=== PATIENT | male | born 1940 | race Caucasian/White ===

== ENCOUNTER 2018-11-10 17:23 | Emergency (ER) | payer OTHER ==
[~2018-11-10 17:23] MED LIST changes: -WARF5TAB23 PO
[2018-11-10] MEDS ORDERED: WARF5TAB23 PO (17:45)
[2018-11-10 17:53] LABS: PLATELET COUNT, AUTOMATED 191 K/uL (150-450)
--- NOTE | 2018-11-10 17:55 | ER Report ---
History and Physical Time Seen By MD: 18:25 Hx. of Stated Complaint: dizzy, anxious, reports low heart rate HPI/ROS CHIEF COMPLAINT: Low heart rate HISTORY OF PRESENT ILLNESS: 78-year-old male history of diabetes, hypertension, paroxysmal atrial fibrillation, on Coumadin for history of A. fib, presents with low heart rate. Patient notes that his home monitor has been showing low heart rate and he is been feeling fatigued and dyspneic 2 days. He states that he has not had shortness of breath or chest pain, however has noticed that he is in a regular rhythm. Today, his home monitor alerted his physician who called him and told him to come here for low heart rate in the 40s. Patient denies change in medications, diet, recent travel, swelling in legs, fevers, chills. [facility] but was told to come here because of the weather. He denies smoking but chews tobacco REVIEW OF SYSTEMS: Constitutional: No fever, no chills. Eyes: no blurred vision ENT: n oswelling Cardiovascular: no chest pain; palpitations as above Respiratory: pt has baseline sob x years; denies recent change Gastrointestinal: No abdominal pain, no vomiting. Genitourinary: no dysuria Musculoskeletal: No back pain. Skin: No rashes. Neurological: No headache. Remainder of the 14 system rev: Yes Allergies: Coded Allergies: lisinopril (Verified Allergy, Mild, RASH AND COUGHING , 10/22/14) Home Meds Reported Medications Warfarin Sodium (WARFARIN SODIUM) 5 Mg Tablet, 5 MG PO QDAY, TAB 11/10/18 Amlodipine Besylate (AMLODIPINE BESYLATE) 10 Mg Tablet, 1 TAB PO QDAY, TAB TAKE ONE TABLET BY MOUTH EVERY DAY 10/22/14 Furosemide (LASIX) 20 Mg Tablet, 1 TAB PO DAILY, TAB 10/22/14 Potassium Chloride (POTASSIUM CHLORIDE) 10 Meq Tab.er.prt, 10 MEQ PO QDAY 10/22/14 Gemfibrozil (GEMFIBROZIL) 600 Mg Tablet, 600 MG PO BID 10/22/14 Multivitamins (Multivitamin) 1 Each Capsule, 1 EACH PO 07/29/12 Cholecalciferol (Vitamin D) 1,000 Unit Capsule, 1000 UNIT PO 07/29/12 Aspirin (Aspirin) 81 Mg Tablet.dr, 81 MG PO 07/29/12 Niacin (Slo-Niacin) 500 Mg Tablet.sa, 500 MG PO 07/29/12 Calcium Carbonate/Vitamin D3 (CALCIUM 600 + VIT D CAPLET) 1 Each Tablet, 1 EACH PO 07/29/12 Metoprolol Tartrate (Metoprolol Tartrate) 25 Mg Tablet, 50 MG PO 07/29/12 Hydrochlorothiazide (Hydrochlorothiazide) 25 Mg Tab, 25 MG PO QDAY 07/29/12 Allopurinol (Zyloprim) 300 Mg Tab, 150 MG PO QDAY 07/29/12 Discontinued Reported Medications Warfarin Sod (Coumadin) 1 Mg Tab, 1 MG PO QDAY take as presribed It is very important that you take your coumadin exactly as prescribed, have blood work to monitor your PT/INR values, and follow up with your health care provider as prescribed. Diet and medication can affect the PT/INR level. Keep your diet pretty much the same day to day. Many foods contain Vitamin K which helps blood to clot and can affect the way your coumadin works. You don't need to avoid foods that have Vitamin K, but you do need to eat about the same amount of them every day. Be sure to tell your provider before changing your diet for any reason (weight loss, illness, etc.) Do not start or discontinue any medications, prescribed or over the counter, except on the advise of your provider or pharmacist. Coumadin (Warfarin) increases the risk of bleeding. 07/29/12 Reviewed Nurses Notes: Yes Old Medical Records Reviewed: Yes Hx Smoking: Yes Smoking Status: Never Smoker Hx Substance Use Disorder: No Hx Alcohol Use: No Constitutional Vital Sign - Last 24 Hours 11/10/18 11/10/18 11/10/18 11/10/18 17:23 17:29 17:38 17:38 Temp 98.6 Pulse ??? 53 ??? Resp 12 B/P (MAP) 124/88 Pulse Ox 99 O2 Delivery Nasal Cannula O2 Flow Rate 3.0 11/10/18 11/10/18 11/10/18 11/10/18 17:49 17:53 18:00 18:08 Pulse 69 53 B/P (MAP) 105/69 (81) 113/58 (76) Pulse Ox 97 97 11/10/18 11/10/18 11/10/18 11/10/18 18:15 18:23 18:30 18:38 Pulse 56 76 Resp 33 9 B/P (MAP) 100/66 (77) 113/58 (76) Pulse Ox 98 99 11/10/18 11/10/18 11/10/18 11/10/18 18:45 18:53 19:00 19:08 Pulse 72 67 Resp 38 20 B/P (MAP) 109/63 (78) 116/58 (77) Pulse Ox 98 97 Physical Exam General Appearance: The patient is alert, has no immediate need for airway protection and no signs of toxicity. Eyes: Pupils equal and round no pallor or injection. ENT, Mouth: Mucous membranes are moist. Respiratory: There are no retractions, lungs are clear to auscultation. Cardiovascular: bradycardia, irreg rhythm Gastrointestinal: Abdomen is soft and non tender, no masses, bowel sounds normal. Neurological: alert, moves all ext Skin: Warm and dry, no rashes. Musculoskeletal: Extremities are nontender, nonswollen and have full range of motion. DIFFERENTIAL DIAGNOSIS: After history and physical exam differential diagnosis was considered for arrhythmia, electrolyte abnormality, acute coronary syndrome, PE, other emergent etiology of palpitations and presenting symptoms. Medical Decision Making Data Points Result Diagram: 11/10/18 1733 11/10/18 1733 Laboratory Hematology Test 11/10/18 17:33 11/10/18 18:05 Red Blood Count 5.25 M/uL (4.00-5.60) Mean Corpuscular Volume 87.0 fL (80.0-96.0) Mean Corpuscular Hemoglobin 28.4 pg (26.0-33.0) Mean Corpuscular Hemoglobin Concent 32.7 g/dL (32.0-36.0) Red Cell Distribution Width 13.8 % (11.5-14.5) Mean Platelet Volume 9.5 fL (7.2-11.1) Neutrophils (%) (Auto) 61.9 % (39.4-72.5) Lymphocytes (%) (Auto) 26.6 % (17.6-49.6) Monocytes (%) (Auto) 9.3 % (4.1-12.4) Eosinophils (%) (Auto) 1.6 % (0.4-6.7) Basophils (%) (Auto) 0.6 % (0.3-1.4) Nucleated RBC Relative Count (auto) 0.0 /100WBC Neutrophils # (Auto) 4.7 K/uL (2.0-7.4) Lymphocytes # (Auto) 2.0 K/uL (1.3-3.6) Monocytes # (Auto) 0.7 K/uL (0.3-1.0) Eosinophils # (Auto) 0.1 K/uL (0.0-0.5) Basophils # (Auto) 0.0 K/uL (0.0-0.1) Nucleated RBC Absolute Count (auto) 0.00 K/uL Prothrombin Time 29.2 seconds (12.0-14.4) Prothromb Time International Ratio 2.69 Activated Partial Thromboplast Time 49 seconds (23-35) Sodium Level 137 mmol/L (137-145) Potassium Level 4.2 mmol/L (3.5-5.0) Chloride Level 97 mmol/L (98-107) Carbon Dioxide Level 29 mmol/L (22-30) Blood Urea Nitrogen 22 mg/dl (9-21) Creatinine 1.10 mg/dl (0.66-1.25) Glomerular Filtration Rate Calc > 60.0 Random Glucose 158 mg/dl (75-110) Calcium Level 10.9 mg/dl (8.4-10.2) Magnesium Level 1.9 mg/dl (1.7-2.2) Total Bilirubin 0.3 mg/dl (0.2-1.3) Aspartate Amino Transf (AST/SGOT) 31 U/L (0-35) Alanine Aminotransferase (ALT/SGPT) 34 U/L (0-56) Alkaline Phosphatase 51 U/L (0-126) Troponin I < 0.012 ng/ml B-Type Natriuretic Peptide 303 pg/ml (0-100) Total Protein 7.3 g/dl (6.3-8.2) Albumin 4.3 g/dl (3.5-5.0) Lipase 62 U/L (23-300) Urine Color Yellow Urine Clarity Clear Urine pH 5.0 pH (4.8-9.5) Urine Specific [place] 1.017 Urine Protein Negative mg/dL (NEGATIVE) Urine Glucose (UA) Negative mg/dL (NEGATIVE) Urine Ketones Negative mg/dL (NEGATIVE) Urine Blood Negative (NEGATIVE) Urine Nitrite Negative (NEGATIVE) Urine Bilirubin Negative (NEGATIVE) Urine Urobilinogen 2.0 mg/dL (0.2-1.9) Urine Leukocyte Esterase Negative (NEGATIVE) Urine RBC None /HPF (0-2/HPF) Urine WBC 1 /HPF (0-5/HPF) Urine Squamous Epithelial Cells Few /LPF (</=FEW) Urine Bacteria Negative /HPF (NONE-FEW) Urine Hyaline Casts Few /LPF (NONE-FEW) Urine Mucus Few /HPF (NONE-FEW) Chemistry Test 11/10/18 17:33 11/10/18 18:05 White Blood Count 7.6 k/uL (4.5-11.0) Red Blood Count 5.25 M/uL (4.00-5.60) Hemoglobin 14.9 g/dL (14.0-18.0) Hematocrit 45.7 % (42.0-52.0) Mean Corpuscular Volume 87.0 fL (80.0-96.0) Mean Corpuscular Hemoglobin 28.4 pg (26.0-33.0) Mean Corpuscular Hemoglobin Concent 32.7 g/dL (32.0-36.0) Red Cell Distribution Width 13.8 % (11.5-14.5) Platelet Count 191 K/uL (150-450) Mean Platelet Volume 9.5 fL (7.2-11.1) Neutrophils (%) (Auto) 61.9 % (39.4-72.5) Lymphocytes (%) (Auto) 26.6 % (17.6-49.6) Monocytes (%) (Auto) 9.3 % (4.1-12.4) Eosinophils (%) (Auto) 1.6 % (0.4-6.7) Basophils (%) (Auto) 0.6 % (0.3-1.4) Nucleated RBC Relative Count (auto) 0.0 /100WBC Neutrophils # (Auto) 4.7 K/uL (2.0-7.4) Lymphocytes # (Auto) 2.0 K/uL (1.3-3.6) Monocytes # (Auto) 0.7 K/uL (0.3-1.0) Eosinophils # (Auto) 0.1 K/uL (0.0-0.5) Basophils # (Auto) 0.0 K/uL (0.0-0.1) Nucleated RBC Absolute Count (auto) 0.00 K/uL Prothrombin Time 29.2 seconds (12.0-14.4) Prothromb Time International Ratio 2.69 Activated Partial Thromboplast Time 49 seconds (23-35) Glomerular Filtration Rate Calc > 60.0 Calcium Level 10.9 mg/dl (8.4-10.2) Magnesium Level 1.9 mg/dl (1.7-2.2) Total Bilirubin 0.3 mg/dl (0.2-1.3) Aspartate Amino Transf (AST/SGOT) 31 U/L (0-35) Alanine Aminotransferase (ALT/SGPT) 34 U/L (0-56) Alkaline Phosphatase 51 U/L (0-126) Troponin I < 0.012 ng/ml B-Type Natriuretic Peptide 303 pg/ml (0-100) Total Protein 7.3 g/dl (6.3-8.2) Albumin 4.3 g/dl (3.5-5.0) Lipase 62 U/L (23-300) Urine Color Yellow Urine Clarity Clear Urine pH 5.0 pH (4.8-9.5) Urine Specific [place] 1.017 Urine Protein Negative mg/dL (NEGATIVE) Urine Glucose (UA) Negative mg/dL (NEGATIVE) Urine Ketones Negative mg/dL (NEGATIVE) Urine Blood Negative (NEGATIVE) Urine Nitrite Negative (NEGATIVE) Urine Bilirubin Negative (NEGATIVE) Urine Urobilinogen 2.0 mg/dL (0.2-1.9) Urine Leukocyte Esterase Negative (NEGATIVE) Urine RBC None /HPF (0-2/HPF) Urine WBC 1 /HPF (0-5/HPF) Urine Squamous Epithelial Cells Few /LPF (</=FEW) Urine Bacteria Negative /HPF (NONE-FEW) Urine Hyaline Casts Few /LPF (NONE-FEW) Urine Mucus Few /HPF (NONE-FEW) Coagulation Test 11/10/18 17:33 Prothrombin Time 29.2 seconds Prothromb Time International Ratio 2.69 Activated Partial Thromboplast Time 49 seconds Urinalysis Test 11/10/18 18:05 Urine Color Yellow Urine Clarity Clear Urine pH 5.0 pH (4.8-9.5) Urine Specific [place] 1.017 Urine Protein Negative mg/dL (NEGATIVE) Urine Glucose (UA) Negative mg/dL (NEGATIVE) Urine Ketones Negative mg/dL (NEGATIVE) Urine Blood Negative (NEGATIVE) Urine Nitrite Negative (NEGATIVE) Urine Bilirubin Negative (NEGATIVE) Urine Urobilinogen 2.0 mg/dL (0.2-1.9) Urine Leukocyte Esterase Negative (NEGATIVE) Urine RBC None /HPF (0-2/HPF) Urine WBC 1 /HPF (0-5/HPF) Urine Squamous Epithelial Cells Few /LPF (</=FEW) Urine Bacteria Negative /HPF (NONE-FEW) Urine Hyaline Casts Few /LPF (NONE-FEW) Urine Mucus Few /HPF (NONE-FEW) EKG/Imaging EKG Interpretation 12 lead EKG: Rhythm: atrial fibrillation [place]: normal QRS: RBBB, PVC's ST segments: normal Atrial fibrillation, bradycardic, multiple PVCs that vary from frequent to bigeminy. Monitor Interpretation: Atrial Fibrillation ED Course/Re-evaluation ED Course 78-year-old male [facility] history of diabetes and atrial fibrillation presents with A. fib with multiple PVCs and bradycardia that ranges from a rate of 40-60. Patient is symptomatic with this. We will evaluate for easily reversible cause and consult cardiology to determine need for transfer and pacemaker. I consulted cardiology/ [facility]; Dr. Ulloa recommends glucagon and will accept in transfer for monitoring and determination of need for pacemaker. Will initiate glucagon and initiate transfer as accepted by hospitalist as well. Pt t/o to Dr. Price awaiting ambulance transfer. Decision to Disposition Date: Nov 10, 2018 Decision to Disposition Time: 19:21 Depart Departure Latest Vital Signs Vital Signs Date Time Temp Pulse Resp B/P (MAP) Pulse Ox O2 Delivery O2 Flow Rate FiO2 11/10/18 19:08 67 20 97 11/10/18 19:00 116/58 (77) 11/10/18 17:38 3.0 11/10/18 17:29 98.6 Nasal Cannula Impression: Primary Impression: PAROXYSMAL ATRIAL FIBRILLATION Additional Impression: Bigeminy Condition: Improved Disposition: XFER TO [facility] ([facility]) Problem Qualifiers VINCENZO MENON MD Nov 10, 2018 17:55
[2018-11-10 18:19] LABS: INR 2.69
--- NOTE | 2018-11-10 18:26 | RADIOLOGY IMAGING REPORT ---
FACILITY: [facility] - [place] PATIENT NAME: Jesse Reveles : 1940 MR: [id number] V: [id number] EXAM DATE: ORDERING PHYSICIAN: VINCENZO MENON TECHNOLOGIST: Location: Patient: Jesse Reveles : 1940 Visit/Account:[id number] Date of Sevice: 11/10/2018 CHEST SINGLE AP Indication: Dyspnea.. Comparison: 10/22/2014. Findings: The cardiac silhouette is mildly enlarged more prominent than previous examination. Mediastinal silho uette and pulmonary vessels within normal limits. There is no focal infiltrate or lobar consolidation. No pneumothorax or pleural effusion. No nodule. Upper abdomen is unremarkable. No acute bony abnormality. IMPRESSION: 1. Mildly enlarged cardiac silhouette without edema or infiltrate. Cardiac silhouette is more promin ent than previous examination. This could be due to mild cardiomegaly or small pericardial effusion. Report Dictated By: Riccardo Altamirano at 11/10/2018 6:20 PM Report E-Signed By: Riccardo Altamirano at 11/10/2018 6:22 PM WSN:[id number]
--- NOTE | 2018-11-10 19:02 | EKG ---
FACILITY: [facility] PATIENT NAME: DOROTHY KUNZ : [id number] MR: [id number] V: [id number] EXAM DATE: ORDERING PHYSICIAN: VINCENZO MENON TECHNOLOGIST: Test Reason : Blood Pressure : / mmHG Vent. Rate : 055 BPM Atrial Rate : 258 BPM P-R Int : 000 ms QRS Dur : 124 ms QT Int : 436 ms P-R-T Axes : 000 065 048 degrees QTc Int : 417 ms Atrial fibrillation with premature ventricular or aberrantly conducted complexes Right bundle branch block Abnormal ECG When compared with ECG of 10-NOV-2018 17:29, PVCs have decreased QT has shortened Confirmed by Derrick Snow ([id number]) on 11/10/2018 11:10:20 PM Referred By: Confirmed By:Derrick Santos
[2018-11-10] MEDS ORDERED: ONDANSETRON 4 MG/2 ML VIAL IVP ONE (19:20)
[2018-11-10] MEDS ORDERED: GLUCAGON 1 MG KIT IM ONE ×2 (19:20→19:55)
[2018-11-10] MEDS ORDERED: GLUCAGON 1 MG KIT IV ONE (19:55)
[2018-11-10 21:30] VITALS: BP 109/69
--- NOTE | 2018-11-11 06:42 | EKG ---
FACILITY: [facility] PATIENT NAME: DOROTHY KUNZ : [id number] MR: [id number] V: [id number] EXAM DATE: ORDERING PHYSICIAN: VINCENZO MENON TECHNOLOGIST: Test Reason : Repeat Blood Pressure : / mmHG Vent. Rate : 077 BPM Atrial Rate : 077 BPM P-R Int : 176 ms QRS Dur : 128 ms QT Int : 448 ms P-R-T Axes : 000 069 051 degrees QTc Int : 506 ms Probable atrial fibrillation with bigeminal PVCs Nonspecific interventricular conduction delay Abnormal ECG Confirmed by MARIZOL SKAGGS ([id number]) on 11/11/2018 4:41:27 PM Referred By: Confirmed By:MARIZOL SKAGGS
== END 2018-11-10 21:48 | disposition short-term general hospital (02) ==
LOC: ER 17:25
DX: I48.0 Paroxysmal atrial fibrillation (principal); R00.8 Other abnormalities of heart beat; I45.10 Unspecified right bundle-branch block
CPT/HCPCS: 81001; 83690; 83735; 83880; 84484; 85025; 85610; 85730; 96372; 96374; 99285; J1610; J2405; 71045; 82040; 82247; 82310; 82374; 82435; 82565; 82947; 84075; 84132; 84155; 84295; 84450; 84460; 84520; 93005

== ENCOUNTER → 2018-11-10 | Outpatient (CLI) | payer OTHER ==
[~2018-11-10] MED LIST: ALL300 PO; AMLO-127 PO; ASPI-715 PO; CALC-797 PO; CHOL100060 PO; CYAN100082 PO; DIA5 PO; ENO100I SC; FURO20TA19 PO; GEMF600T96 PO; GLY5 PO; HCTZ25 PO; HYDR-3087 PO; LANI SQ; METO25TA93 PO; MULT1CAP59 PO; NIAC500T81 PO; POTA-53 PO; SPIR25TA78 PO; WAR1 PO; WARF5TAB23 PO
== END ==
LOC: AMB 21:23
PROVIDERS: ATTEND Nurse Practitioner
DX: I49.9 Cardiac arrhythmia, unspecified (principal)
CPT/HCPCS: A0425; A0428

== ENCOUNTER → 2019-05-10 | Outpatient (CLI) | payer MEDICARE, OTHER ==
[~2019-05-10] MED LIST changes: +WARF5TAB23 PO
--- NOTE | 2019-05-10 10:42 | RADIOLOGY IMAGING REPORT ---
FACILITY: [facility] - [place] PATIENT NAME: Jesse Reveles : 1940 MR: [id number] V: [id number] EXAM DATE: ORDERING PHYSICIAN: JANIE SUAREZ TECHNOLOGIST: Location: [facility] [place] Patient: Jesse Reveles : 1940 Visit/Account:[id number] Date of Sevice: 05/10/2019 Exam type: US ANKLE BRACHIAL INDICES History: Claudication Comparison: None. Findings: The study is limited as the dorsalis pedis and posterior tibial artery pressures were not accurate as the vessels were noncompressible. This may be related to calcified vessels. Arterial duplex scan o f the lower extremities may be of value The segmental pressure in the right brachial artery is 137 mmHg. The segmental pressure in the right dorsalis pedis artery is 144 mmHg. The segmental pressure in the right posterior tibial artery is 2 40 mmHg. The signal pressure in the right great toe is 67 mmHg. CHANI on the right is 1.69 and the TBI 0.47 The segmental pressure in the left brachial artery is 142 mmHg. The segmental pressure in the left r esults pedis arteries 239 mmHg. The signal pressure in the left posterior tibial arteries 239 mmHg. Segmental pressure in left great toe is 86 mmHg. The CHANI on the left is 1.68 the TBI is 0.61 IMPRESSION: 1. Limited study due to noncompressibility of the dorsalis pedis and posterior tibial arteries but t he resulting pressures are not accurate. Arterial duplex scan of the lower extremities may be of vishal ue Report Dictated By: Leanna Brown MD at 05/10/2019 10:32 AM Report E-Signed By: Leanna Brown MD at 05/10/2019 10:34 AM WSN:[id number]
== END ==
LOC: US 04:06
PROVIDERS: ATTEND Internal Medicine Cardiovascular Disease
DX: I70.209 Unspecified atherosclerosis of native arteries of extremities, unspecified extremity (principal)
CPT/HCPCS: 93922